=== PATIENT | male | born 1990 | race Caucasian/White ===

== ENCOUNTER 2016-11-18 12:42 | Emergency (ER) | payer MEDICAID, OTHER ==
[2016-11-18 13:14] VITALS: PULSE 84; RESP 18
--- NOTE | 2016-11-18 14:19 | C.PDOC ---
History Of Present Illness Uma Hernandez is a 26 year old male, with no past medical history, who presents to the emergency department complaining of penile soreness onset for 2 weeks. Patient also reports rectal pain onset since last night. Patient denies any open sores, or any sexual activity for about a year. He denies any fever, chills, nausea, vomit, abdominal and back pain. PMD: Eric Mehta Time Seen by Provider: 11/18/16 13:36 Chief Complaint (Nursing): Male Genitourinary History Per: Patient History/Exam Limitations: no limitations Onset/Duration Of Symptoms: Days (x2 weeks) Current Symptoms Are (Timing): Still Present Associated Symptoms: denies: Fever, Chills, Nausea, Vomiting, Back Pain Past Medical History Reviewed: Historical Data, Nursing Documentation, Vital Signs Vital Signs: Last Vital Signs Temp 97.8 F 11/18/16 16:43 Pulse 84 11/18/16 16:43 Resp 18 11/18/16 16:43 BP 126/82 11/18/16 16:43 Pulse Ox 99 11/18/16 16:43 - Medical History PMH: No Chronic Diseases Family History: States: Unknown Family Hx - Social History Hx Tobacco Use: No Hx Alcohol Use: Yes Hx Substance Use: No - Immunization History Hx Tetanus Toxoid Vaccination: No Hx Influenza Vaccination: No Hx Pneumococcal Vaccination: No Review Of Systems Except As Marked, All Systems Reviewed And Found Negative. Constitutional: Negative for: Fever, Chills Gastrointestinal: Positive for: Rectal Pain. Negative for: Nausea, Vomiting, Abdominal Pain Genitourinary: Positive for: Penile Pain Musculoskeletal: Negative for: Back Pain Physical Exam - Physical Exam Appears: Non-toxic, No Acute Distress Skin: Normal Color, Warm, Dry Head: Atraumatic, Normacephalic Eye(s): bilateral: Normal Inspection, PERRL, EOMI Ear(s): Bilateral: Normal Nose: Normal Throat: Normal Neck: Normal Respiratory: Normal Breath Sounds Gastrointestinal/Abdominal: Normal Exam Rectal: No Hemorrhoids Back: Normal Inspection Male Genital: Testicular Tenderness (bilateral testicular tenderness to palpation) Extremity: Normal ROM Neurological/Psych: Oriented x3, Normal Speech, Normal Cognition, Normal Motor, Normal Sensation ED Course And Treatment - Laboratory Results Result Diagrams: 11/18/16 14:38 11/18/16 14:38 Lab Interpretation: No Acute Changes O2 Sat by Pulse Oximetry: 98 (RA) Pulse Ox Interpretation: Normal - CT Scan/US testicular sono Other Rad Studies (CT/US): Radiology Report Reviewed CT/US Interpretation: no torsion, +varicocele Medical Decision Making Medical Decision Making: Initial Plan: --Comp Metabolic Panel --CBC w/ differential and PSA --Testes duplex US --Urinalysis --reevaluation Pt declined pyridium in ED. Scribe Attestation The documentation for this encounter was entered by Bart Skinner acting as a scribe for Kati ARBOLEDA All medical record entries made by the Scribe were at my direction and personally dictated by me. I have reviewed the chart and agree that the record accurately reflects my personal performance of the history, physical exam, medical decision making, and the department course for this patient. I have also personally directed, reviewed, and agree with the discharge instructions and disposition. Disposition Counseled Patient/Family Regarding: Studies Performed, Diagnosis, Need For Followup, Rx Given - Disposition Referrals: Eric Mehta MD [Medical Doctor] - Disposition: HOME/ ROUTINE Disposition Time: 16:34 Condition: STABLE Additional Instructions: FOLLOW UP WITH YOUR PMD, UROLOGIST AND FOOD QUALITY TESTER. URINE CULTURE WAS SENT AND PENDING. IF SYMPTOMS GET WORSE OR ANY NEW CONCERNING SYMPTOMS DEVELOP RETURN TO ED. Prescriptions: Phenazopyridine [Pyridium] 1 tab PO TID PRN #6 tab PRN Reason: Pain, Moderate (4-7) Instructions: Varicocele (ED), Testicle Pain (ED), Dysuria (ED), Rectal Pain ( ED) Forms: [email or web address] (Jordanian) - Clinical Impression Clinical Impression: Dysuria, Rectal pain, Varicocele, Testicular pain
[2016-11-18 14:43] LABS: BASO % 0.8 % (0.0-2.0); EOS # 0.1 K/uL (0.0-0.7); HEMATOCRIT 49.8 % (35.0-51.0); LYMPH # 2.2 K/uL (1.0-4.3); MEAN CELL VOLUME 73.9 fL (80.0-94.0); MEAN CORPUSCULAR HEMOGLOBIN 23.9 pg (27.0-31.0); MEAN CORPUSCULAR HGB CONC 32.3 g/dL (33.0-37.0); MONO # 0.5 K/uL (0.0-0.8); RED CELL DISTRIBUTION WIDTH 14.9 % (11.5-14.5); WHITE BLOOD COUNT 5.6 K/uL (4.8-10.8)
[2016-11-18 14:48] LABS: RBC URINE < 1 /hpf (0-3); URINE BACTERIA RARE (<OCC); URINE BILIRUBIN NEGATIVE (NEGATIVE); URINE BLOOD NEGATIVE (NEGATIVE); URINE COLOR Yellow (YELLOW); URINE GLUCOSE (UA) NORMAL (Normal); URINE KETONE NEGATIVE (NEGATIVE); URINE LEUKOCYTE ESTERASE NEG Leu/uL (Negative); URINE PROTEIN NEGATIVE (NEGATIVE); URINE UROBILINOGEN NORMAL mg/dL (0.2-1.0); WBC URINE < 1 /hpf (0-5)
[2016-11-18 14:55] LABS: ALB/GLOB RATIO 1.3 (1.0-2.1); ALKALINE PHOSPHATASE 88 U/L (38-126); ALT/SGPT 31 U/L (21-72); AST/SGOT 26 U/L (17-59); BILIRUBIN,TOTAL 0.6 mg/dL (0.2-1.3); BLOOD UREA NITROGEN 13 mg/dL (9-20); CALCIUM 9.8 mg/dl (8.6-10.4); CARBON DIOXIDE 30 mmol/L (22-30); CHLORIDE 96 mmol/L (98-107); GFR AFRICAN-AMERICAN > 60; GLUCOSE,RANDOM 80 mg/dL (75-110); POTASSIUM 4.1 mmol/L (3.6-5.2); SODIUM 140 mmol/L (132-148); TOTAL PROTEIN 7.6 g/dL (6.3-8.3)
[2016-11-18 15:25] LABS: PROSTATE SPECIFIC ANTIGEN 0.608 ng/mL (0.00-4.0)
--- NOTE | 2016-11-18 16:27 | US ---
HISTORY: testicular pain TECHNIQUE: Realtime sonography through the scrotum with color and doppler flow. COMPARISON: None Available. FINDINGS: RIGHT TESTICLE: Measures 4.7 x 2.1 x 2.9 cm. Normal echotexture and flow. RIGHT EPIDIDYMIS: Epididymal head measures 1.1 x 0.7 x 1.1 cm. Grossly unremarkable appearance with normal flow. LEFT TESTICLE: Measures 4.5 x 1.9 x 2.7 cm. Normal echotexture and flow. LEFT EPIDIDYMIS: Epididymal head measures 0.9 x 0.9 x 0.9 cm. Grossly unremarkable appearance with normal flow. HYDROCELE: None. VARICOCELE: Mild right-sided varicocele. OTHER FINDINGS: None. IMPRESSION: No evidence of testicular torsion. Mild right-sided varicocele. If clinically warranted further assessment of the lower abdomen and pelvis by other modality may be obtained.
[2016-11-18 16:54] VITALS: BP 126/82; TEMP 97.8
[2016-11-18 21:52] VITALS: O2SAT 98
== END 2016-11-18 16:50 | disposition home or self-care (01) ==
LOC: C.ER 12:42
DX: R30.0 Dysuria (principal); I86.1 Scrotal varices; N50.812 Left testicular pain; N50.811 Right testicular pain; K62.89 Other specified diseases of anus and rectum

== ENCOUNTER 2017-05-21 04:57 | Emergency (ER) | payer OTHER ==
[2017-05-21 05:18] VITALS: RESP 18
[2017-05-21] MEDS ORDERED: Alum-Mag Hydrox-Simethicone Susp (30 mL) PO STA (05:19)
[2017-05-21] MEDS ORDERED: Alum-Mag Hydrox-Simethicone Susp (30 mL) ONE (05:30)
--- NOTE | 2017-05-21 06:03 | C.PDOC ---
Time Seen by Provider: 05/21/17 05:07 Chief Complaint (Nursing): Chest Pain History Per: Patient, Family Onset/Duration Of Symptoms: Days (4), Intermittent Episodes Current Symptoms Are (Timing): Still Present Severity: Moderate Quality: Burning Associated Symptoms: denies: Diaphoresis, Syncope Modifying Factors: Other Indicated Below Exacerbating Factors: Other (Laying down) Alleviating Factors: Other (Standing up) Additional History Per: Prior Records Past Medical History Reviewed: Historical Data, Nursing Documentation, Vital Signs Vital Signs: Last Vital Signs Temp 98.3 F 05/21/17 05:15 Pulse 82 05/21/17 05:24 Resp 18 05/21/17 05:15 BP 138/76 05/21/17 05:15 Pulse Ox 100 05/21/17 06:03 - Medical History PMH: No Chronic Diseases Surgical History: No Surg Hx Family History: States: Unknown Family Hx - Social History Hx Tobacco Use: No Hx Alcohol Use: Yes Hx Substance Use: No - Immunization History Hx Tetanus Toxoid Vaccination: No Hx Influenza Vaccination: No Hx Pneumococcal Vaccination: No Review Of Systems Except As Marked, All Systems Reviewed And Found Negative. Constitutional: Negative for: Fever ENT: Positive for: Throat Pain (Throat irritation) Cardiovascular: Negative for: Palpitations Respiratory: Negative for: Cough, Shortness of Breath, Hemoptysis Gastrointestinal: Negative for: Vomiting, Abdominal Pain Musculoskeletal: Negative for: Back Pain, Leg Pain Skin: Negative for: Rash Neurological: Negative for: Weakness, Numbness Physical Exam - Physical Exam Appears: Non-toxic, No Acute Distress Skin: Normal Color, Warm, Dry, No Rash Head: Atraumatic, Normacephalic Eye(s): bilateral: Normal Inspection, PERRL, EOMI Neck: Normal ROM, Supple Chest: Symmetrical, No Deformity, No Tenderness Cardiovascular: Rhythm Regular Respiratory: Normal Breath Sounds, No Accessory Muscle Use Gastrointestinal/Abdominal: Soft, No Tenderness Back: No CVA Tenderness Extremity: Normal ROM, No Pedal Edema, No Calf Tenderness Neurological/Psych: Oriented x3, Normal Speech, Normal Motor, Normal Sensation ED Course And Treatment ECG: Interpreted By Me, Viewed By Me ECG Rhythm: Sinus Rhythm, Nonspecific Changes ECG Interpretation: No Acute Changes Rate From EC O2 Sat by Pulse Oximetry: 100 Pulse Ox Interpretation: Normal - Radiology CXR: Interpreted by Me, Viewed By Me CXR Interpretation: Yes: No Acute Disease, Heart Size (WNL) Progress - Interventions Interventions:: Observation - Medications Administered Oral: Antacid, H-2 kiki - Data Reviewed Data Reviewed: Diagnostic imaging, EKG, Old records - Patient Status Patient status: Completely improved - Continuity of Care Discussed patient case with:: Patient, Family-HIPPA compliant, ED Nurse - Patient Plan Patient Plan: Discharge, F/U with PCP Disposition Counseled Patient/Family Regarding: Studies Performed, Diagnosis, Need For Followup, Rx Given - Disposition Disposition: HOME/ ROUTINE Disposition Time: 06:04 Condition: IMPROVED Additional Instructions: Follow up with your doctor for further evaluation and treatment. Return to the ER if you develop shortness of breath, vomiting, worsening of symptoms or if you have any other concerns. Prescriptions: Famotidine [Pepcid] 20 mg PO BID #30 tab Instructions: Acid Reflux (Gastroesophageal Reflux Disease), Adult (DC) Forms: [employer] (Polish) - Clinical Impression Clinical Impression: GERD (gastroesophageal reflux disease)
[2017-05-21 06:11] VITALS: BP 126/72; PULSE 65; TEMP 98.2; O2SAT 99
--- NOTE | 2017-05-21 08:38 | RAD ---
HISTORY: Chest pain COMPARISON: No prior. TECHNIQUE: Chest PA and lateral FINDINGS: LUNGS: No active pulmonary disease. PLEURA: No significant pleural effusion identified. No pneumothorax apparent. CARDIOVASCULAR: Normal. OSSEOUS STRUCTURES: No significant abnormalities. VISUALIZED UPPER ABDOMEN: Normal. OTHER FINDINGS: None. IMPRESSION: No active disease.
--- NOTE | 2017-05-22 19:14 | CARD ---
APPROVED REPORT EKG Measurement Heart [id number] <Conclusion> Normal sinus rhythm Possible Left atrial enlargement Borderline ECG
== END 2017-05-21 06:11 | disposition home or self-care (01) ==
LOC: SUPCPDRO 04:57 → C.ER 04:57
DX: K21.9 Gastro-esophageal reflux disease without esophagitis (principal)

== ENCOUNTER 2018-07-23 07:58 | Day surgery (SDC) | payer OTHER ==
[~2018-07-23 07:58] MED LIST: ceFAZolin 1 gm in NS 2 GM/200 ML BAG IVPB ONE
[2018-07-23 08:20] VITALS: BMI 26.9
[2018-07-23] MEDS ORDERED: Propofol 10 mg/ml Inj (20 ML) ONE (08:20)
[2018-07-23] MEDS ORDERED: Midazolam 2 MG/2 ML VIAL ONE (08:20)
[2018-07-23] MEDS ORDERED: Lidocaine Hydrochloride 5 ML INJ ONE (08:20)
[2018-07-23] MEDS ORDERED: Dextrose 5%/0.45% NS 1,000 ML IV SCH (10:00)
[2018-07-23] MEDS ORDERED: Morphine 10 mg/5 ml Oral Soln PO PRN (10:47)
[2018-07-23] MEDS ORDERED: HYDROmorphone 0.5 mg/0.5 ml ISec IVP PRN (10:55)
[2018-07-23] MEDS ORDERED: HYDROmorphone 0.5 mg/0.5 ml ISec ONE (10:58)
[2018-07-23] MEDS ORDERED: Lactated Ringer's 1,000 ML IV SCH (11:00)
[2018-07-23 11:22] VITALS: O2SAT 100
[2018-07-23 12:34] VITALS: BP 112/76; PULSE 69; RESP 18; TEMP 98
--- NOTE | 2018-07-23 13:31 | OP ---
PROCEDURE DATE: 07/23/2018 PREOPERATIVE DIAGNOSIS: Chronic tonsillitis. POSTOPERATIVE DIAGNOSIS: Chronic tonsillitis. PROCEDURE: Tonsillectomy. SIGNIFICANT FINDINGS: Chronic infected tonsils. DESCRIPTION OF PROCEDURE: The patient was brought into room, placed in supine position. Anesthesia was initiated through an ET tube. The patient was draped in usual manner. Mouth gag was placed in oral cavity, opened and suspended on the Ro[employer] strainer mill operator the usual manner. Right tonsil was grabbed, pulled medially. Incision was made in the anterior tonsillar pillar using coblation. Dissection was done between tonsil and tonsillar fossa using coblation until the tonsil was removed. Bleeding was controlled using coblation. Next, the other tonsil was grabbed, pulled medially. Incision was made in the anterior tonsillar pillar using coblation. Dissection was done between tonsil and tonsillar fossa using coblation until the tonsil was removed. Bleeding was controlled using coblation. Both tonsillar beds were rubbed vigorously using coblation wand. No bleeding was noted. Mouth gag was let down for 30 seconds, put backup, no bleeding was noted. Mouth gag was taken down and removed. The patient was taken off anesthesia and taken to recovery room in stable manner. David Sanchez MD
== END 2018-07-23 12:53 | disposition home or self-care (01) ==
LOC: C.SDS 07:58
PROVIDERS: ATTEND Otolaryngology
DX: J35.01 Chronic tonsillitis (principal)
CPT/HCPCS: 42826; 88304; J0690; J1100; J1170; J2250; J2704; J3010; J7040

== ENCOUNTER 2018-08-02 04:18 | Day surgery (SDC) | payer OTHER ==
[2018-08-02 04:18] VITALS: BMI 26.9
--- NOTE | 2018-08-02 04:39 | C.PDOC ---
History Of Present Illness 28 year old male s/p tonsillectomy on 07/23/18 presents to ED with bleeding from operative wound x 1 hour. Patient states one of his tonsillectomy scabs fell off after coughing this morning, has been consistently bleeding since then. Has been spitting out the blood. Patient denies dizziness, nausea, vomiting. No other complaints at this time. Time Seen by Provider: 08/02/18 04:29 Chief Complaint (Nursing): ENT Problem History Per: Patient History/Exam Limitations: None Onset/Duration Of Symptoms: Hrs (1) Current Symptoms Are (Timing): Still Present Past Medical History Vital Signs: Last Vital Signs Temp 98.6 F 08/02/18 04:26 Pulse 86 08/02/18 04:26 Resp 20 08/02/18 04:26 BP 120/83 08/02/18 04:26 Pulse Ox 100 08/02/18 04:26 - Medical History PMH: Anemia (IRON DEFICENCY ANEMIA) Denies: Chronic Kidney Disease Surgical History: Tonsillectomy ([id number]) Family History: States: Unknown Family Hx - Social History Hx Tobacco Use: No Hx Alcohol Use: Yes Hx Substance Use: No - Immunization History Hx Tetanus Toxoid Vaccination: No Hx Influenza Vaccination: No Hx Pneumococcal Vaccination: No Review Of Systems Except As Marked, All Systems Reviewed And Found Negative. Constitutional: Negative for: Fever ENT: Positive for: Other (bleeding). Negative for: Throat Pain Cardiovascular: Negative for: Chest Pain, Palpitations Respiratory: Negative for: Shortness of Breath Gastrointestinal: Negative for: Nausea Neurological: Negative for: Weakness Physical Exam - Physical Exam Appears: Well, Non-toxic, Other (Actively spitting blood) Skin: Normal Color, Warm, Dry Head: Atraumatic, Normacephalic Eye(s): bilateral: Normal Inspection Oral Mucosa: Moist Throat: Other (Oozy bleeding from right tonsillectomy site, left site intact) Neck: Supple Cardiovascular: Rhythm Regular Pulses: Left Radial: Normal, Right Radial: Normal Neurological/Psych: Oriented x3, Normal Speech ED Course And Treatment - Laboratory Results Result Diagrams: 08/02/18 05:05 08/02/18 05:05 O2 Sat by Pulse Oximetry: 100 Medical Decision Making Medical Decision Making: Vitals stable. Ice water rinse in ED. Labs, fluids. Spoke with Dr. Sanchez at 4:45, will come eval patient. Dr. Sanchez called back 5:10, patient to go to OR. Patient taken to OR at 5:56 Disposition - Disposition Disposition: HOSPITALIZED Disposition Time: 05:38 Condition: FAIR - Clinical Impression Clinical Impression: Post tonsillectomy secondary hemorrhage
[2018-08-02] MEDS ORDERED: Sodium Chloride 0.9% 1,000 ML IV ONE (04:48)
[2018-08-02 05:13] LABS: BASO % 0.8 % (0.0-2.0); EOS # 0.2 K/uL (0.0-0.7); EOS % 2.9 % (0.0-4.0); HEMOGLOBIN 13.9 g/dL (12.0-18.0); LYMPH # 1.8 K/uL (1.0-4.3); MEAN CORPUSCULAR HEMOGLOBIN 23.6 pg (27.0-31.0); MEAN CORPUSCULAR HGB CONC 31.9 g/dL (33.0-37.0); MEAN PLATELET VOLUME 7.1 fL (7.2-11.7); MONO # 0.6 K/uL (0.0-0.8); MONO % 10.4 % (0.0-10.0); NEUT # 2.9 K/uL (1.8-7.0); NEUT % 52.9 % (50.0-75.0); NRBC % 0.1 % (0.0-2.0); RBC 5.87 Mil/uL (4.40-5.90); RED CELL DISTRIBUTION WIDTH 14.2 % (11.5-14.5); WHITE BLOOD COUNT 5.6 K/uL (4.8-10.8)
[2018-08-02 05:26] LABS: ALB/GLOB RATIO 1.3 (1.0-2.1); ALBUMIN 4.4 g/dL (3.5-5.0); ALT/SGPT 22 U/L (21-72); AST/SGOT 27 U/L (17-59); BLOOD UREA NITROGEN 17 mg/dL (9-20); CALCIUM 9.4 mg/dl (8.6-10.4); GFR NON-AFRICAN AMERICAN > 60
[2018-08-02 05:27] LABS: INR 1.3; PARTIAL THROMBOPLASTIN TIME 40.8 SECONDS (21-34); PROTHROMBIN TIME 14.5 SECONDS (9.7-12.2)
[2018-08-02] MEDS ORDERED: Propofol 10 mg/ml Inj (20 ML) ONE (06:03)
[2018-08-02] MEDS ORDERED: Midazolam 2 MG/2 ML VIAL ONE (06:03)
[2018-08-02] MEDS ORDERED: Rocuronium 10 mg/ml (5 ml) ONE (06:04)
[2018-08-02] MEDS ORDERED: Succinylcholine Chloride 20 mg/ml Syr (5 ml) IV ONE (06:04)
[2018-08-02] MEDS ORDERED: Morphine 10 mg/5 ml Oral Soln PO PRN (06:28)
[2018-08-02] MEDS ORDERED: Dextrose 5%/0.45% NS 1,000 ML IV SCH (06:30)
[2018-08-02 07:48] VITALS: RESP 18
[2018-08-02 08:07] VITALS: O2SAT 98
[2018-08-02 09:09] VITALS: BP 122/69; PULSE 83; TEMP 98.2
--- NOTE | 2018-08-02 11:15 | OP ---
PROCEDURE DATE: 08/02/2018 PREOPERATIVE DIAGNOSIS: Post tonsillectomy bleeding. POSTOPERATIVE DIAGNOSIS: Post tonsillectomy bleeding. PROCEDURE: Control of post tonsillectomy bleeding. SIGNIFICANT FINDINGS: Bleeding area in the right superior tonsillar fossa. DESCRIPTION OF PROCEDURE: The patient was brought into the room and placed in supine position. Anesthesia was initiated through an ET tube. The patient was draped in the usual manner. Mouth gag was placed in the oral cavity, opened, and suspended on Rojas renal medicine specialist the usual manner. Bleeding area was spotted on the right superior tonsillar fossa. Suction cautery was used to control bleeding. The area was irrigated. No bleeding was noted. OG tube was passed into the stomach and blood in the stomach was suctioned out. The mouth gag was taken down for 30 seconds, put back up, no bleeding was noted. The area was rubbed using the Yankauer suction in the right tonsillar fossa. No bleeding was noted. The mouth gag was taken down and removed. The patient was taken off anesthesia and taken to recovery room in stable manner. David Sanchez MD
== END 2018-08-02 09:10 | disposition home or self-care (01) ==
LOC: C.ER 04:18 → C.SDS 04:18
PROVIDERS: ATTEND Otolaryngology
DX: J95.830 Postprocedural hemorrhage of a respiratory system organ or structure following a respiratory system procedure (principal)
CPT/HCPCS: 36415; 42962; 80053; 85025; 85610; 85730; 86850; 86900; 99285; J0131; J2001; J2250; J2704; J3010